=== PATIENT | female | born 1935 | race Caucasian/White ===

== ENCOUNTER → 2020-08-13 | Outpatient (CLI) | payer MEDICARE, OTHER | LOC: MC.RAD 09:59 | DX: Z12.31 Encounter for screening mammogram for malignant neoplasm of breast (principal); Z95.0 Presence of cardiac pacemaker ==

== ENCOUNTER 2020-10-20 10:30 | Outpatient (RCR) | payer MEDICARE, OTHER | END 2020-10-27 | disposition home or self-care (01) | LOC: WSST | DX: R41.841 Cognitive communication deficit (principal); R41.3 Other amnesia; Z91.81 History of falling ==

== ENCOUNTER → 2021-01-12 | Outpatient (CLI) | payer MEDICARE, OTHER | LOC: COL.RAD 12:53 | DX: R90.82 White matter disease, unspecified (principal); E86.9 Volume depletion, unspecified; H91.93 Unspecified hearing loss, bilateral; E53.8 Deficiency of other specified B group vitamins; F32.9 Major depressive disorder, single episode, unspecified ==

== ENCOUNTER 2022-02-22 10:33 | Observation (INO) | payer MEDICARE, OTHER ==
[~2022-02-22] VITALS: Ht 157.5 cm; Wt 53.8 kg
[2022-02-22 10:59] LABS: BASO # 0.1 K/mm3 (0.0-0.2); BASO % 1.3 % (0.0-2.0); EOS % 0.5 % (0.0-4.0); GRAN # 4.9 K/mm3 (1.4-6.5); GRAN % 78.4 % (42.2-75.2); HEMATOCRIT 34.7 % (37.0-47.0); HEMOGLOBIN 11.6 g/dl (12.5-16.0); LYMPH # 0.5 K/mm3 (1.2-3.4); LYMPH % 8.2 % (20.0-51.0); MEAN CELL VOLUME 98 fl (80.0-100.0); MEAN CORPUSCULAR HEMOGLOBIN 33 pg (27-31); MEAN CORPUSCULAR HGB CONC 33 g/dl (33.0-37.0); MONO # 0.7 K/mm3 (0.1-0.6); MONO % 11.1 % (1.7-9.3); PLATELET COUNT 153 K/mm3 (130-400); RED BLOOD COUNT 3.54 M/mm3 (4.10-5.30)
[2022-02-22 11:17] LABS: ALBUMIN 4.1 gm/dL (3.4-4.8); BILIRUBIN,TOTAL 1.5 mg/dL (0.2-1.2); CALCIUM 8.9 mg/dL (8.4-10.2); CREATININE, serum 0.75 mg/dL (0.57-1.11); POTASSIUM 3.9 mmol/L (3.5-4.5); TOTAL PROTEIN 7.1 gm/dL (6.2-8.1)
[2022-02-22 11:22] LABS: TROPONIN-I 0.028 ng/mL (0.00-0.033)
[2022-02-22] MEDS ORDERED: COREG 3.123.125 MG/T PO (12:05)
[2022-02-22] MEDS ORDERED: ORENCIA CL125 MG/1 M SQ (12:05)
[2022-02-22] MEDS ORDERED: METHOTREXA2.5 MG/TAB PO (12:06)
[2022-02-22] MEDS ORDERED: ELIQUIS 2.5 PO (12:06)
[2022-02-22] MEDS ORDERED: FOLIC ACID 11 MG/TA1 PO (12:06)
[2022-02-22] MEDS ORDERED: CALCIUM 600 MG1 EAC2 PO (12:07)
[2022-02-22] MEDS ORDERED: FERRETTS I40 MG/15 M PO (12:07)
[2022-02-22] MEDS ORDERED: OCUVITE1 TA1 PO (12:07)
[2022-02-22] MEDS ORDERED: NAMENDA 10MG TA10 MG PO (12:08)
[2022-02-22] MEDS ORDERED: EXELON9.5 MG/24 TD (12:08)
[2022-02-22] MEDS ORDERED: VITAMIN B12 781 TAB PO (12:08)
[2022-02-22 19:27] VITALS: BP 154/43; PULSE 62; TEMP 97.5
[2022-02-22 20:57] VITALS: BP 143/62; PULSE 70; TEMP 97.8
[2022-02-23 00:05] VITALS: BP 150/74; PULSE 76; TEMP 97.5
--- NOTE | 2022-02-23 00:49 | NUR ---
PATIENT ABLE TO AMBULATE TO BED WITH SBA. PATIENT CALM AND COOPERATIVE. V/S STABLE AND PATIENT IS ON ROOM AIR. PATIENT ORIENTED TO ROOM UPON ADMISSION. NO REQUESTS OR CONCERNS VERBALIZED BY PATIENT AT THIS TIME.
[2022-02-23 04:35] VITALS: BP 139/79; PULSE 83; TEMP 97.6
[2022-02-23 06:20] LABS: BASO % 0.4 % (0.0-2.0); GRAN # 3.5 K/mm3 (1.4-6.5); GRAN % 70.6 % (42.2-75.2); HEMOGLOBIN 11.7 g/dl (12.5-16.0); LYMPH # 0.8 K/mm3 (1.2-3.4); LYMPH % 15.2 % (20.0-51.0); MEAN CELL VOLUME 99 fl (80.0-100.0); MEAN CORPUSCULAR HEMOGLOBIN 33 pg (27-31); MEAN CORPUSCULAR HGB CONC 33 g/dl (33.0-37.0); MEAN PLATELET VOLUME 10.8 fl (7.4-10.4); MONO # 0.7 K/mm3 (0.1-0.6); MONO % 13.2 % (1.7-9.3); PLATELET COUNT 168 K/mm3 (130-400); RED BLOOD COUNT 3.59 M/mm3 (4.10-5.30); REDCELL DISTRIBUTION WIDTH-CV 17.3 % (11.5-14.5)
[2022-02-23 06:29] LABS: HEMATOCRIT 35.5 % (37.0-47.0)
--- NOTE | 2022-02-23 06:31 | NUR ---
patient rested quietly in bed throughout the night. No new issues noted or reported by patient.
[2022-02-23 06:39] LABS: ALBUMIN 3.4 gm/dL (3.4-4.8); BILIRUBIN,TOTAL 0.7 mg/dL (0.2-1.2); CALCIUM 8.6 mg/dL (8.4-10.2); CREATININE, serum 0.79 mg/dL (0.57-1.11); POTASSIUM 3.8 mmol/L (3.5-4.5); TOTAL PROTEIN 6.2 gm/dL (6.2-8.1)
[2022-02-23 07:57] VITALS: BP 161/94; PULSE 91; TEMP 98
--- NOTE | 2022-02-23 08:44 | NUR ---
Patient oriented to person and place. Was able to tell me she is in a hospital in [place], but could not remember what town. Could not remember the date. Patient denies any concerns at this time. Bed alarm is on, PCT asked to place patient in yellow gown and socks, as well as place a monitor in the room for patient's safety. Patient remains on RA. Morning medications administered and breakfast ordered. Patient instructed to use call light if any needs arise.
--- NOTE | 2022-02-23 09:21 | NUR ---
The patient is COVID positive. SW contacted the patient to discuss discharge plan. The patient resides alone at [facility]. She reports independence with ADLs and has a walker. The patient's primary care provider is SANJUANITA Cardoza and she receives her medications from [facility]. The patient believes she has a DPOA-HC and designated her daughter, Kinga. She states that she is and has three children: Kinga (ph#[phone]), Huber, and Marshal. SW contacted the patient's daughter, Kinga, to review the above and discharge plan. Kinga confirmed the above. She states that she feels comfortable with the patient returning back to her [place] apartment upon discharge, as long as she is able to get up and go to the bathroom. She states that if the patient is needing help, she plans on staying with the patient. Kinga states that she is the patient's DPOA-HC and she can bring a copy of the document to the hospital. PT/OT have been ordered. [facility] to continue to follow. *Discharge plan: [facility]. Awaiting PT/OT recs*
[2022-02-23 11:07] VITALS: BP 149/75; PULSE 85; TEMP 97.8
[2022-02-23] MEDS ORDERED: ZESTRIL 10MG10 MG PO (11:33)
[2022-02-23] MEDS ORDERED: LASIX 20MG TABL20 MG PO (11:39)
--- NOTE | 2022-02-23 12:57 | NUR ---
The hospitalist notified [facility] that he is ready to discharge the patient today. PT worked with the patient and notified [facility] that the patient is appropriate to return back to [place], but would recommend home health. [facility] contacted and updated the patient's daughter, Kinga. Kinga is in agreement to the plan and would like to go ahead and use [facility]. [facility] contacted and faxed a referral to Cristo at [facility]. Cristo states that they are able to accept the patient for services. The patient is to discharge today, 02/23, back to [facility] with assistance from her daughter and home health services for long term/PT/OT from [facility]. [facility] notified and faxed orders to Cristo at [facility]. No additional needs at this time.
--- NOTE | 2022-02-23 16:25 | NUR ---
Patient discharged home w/ daughter. All discharge education and instructions gone over w/ daughter, as patient has dementia. All questions answered. IV and telemetry removed.
== END 2022-02-23 16:15 | disposition home health service (06) ==
LOC: COL.ER 10:33 → MEDICAL 13:18 → EDBEDREQ 17:51 → MEDICAL 02-23 16:15
PROVIDERS: Emergency Medicine; Physician Assistant; ADMIT Student in an Organized Health Care Education/Training Program
DX: I11.0 Hypertensive heart disease with heart failure (principal); I50.21 Acute systolic (congestive) heart failure; U07.1 COVID-19; I48.19 Other persistent atrial fibrillation; F03.90 Unspecified dementia, unspecified severity, without behavioral disturbance, psychotic disturbance, mood disturbance, and anxiety; R94.5 Abnormal results of liver function studies; M06.9 Rheumatoid arthritis, unspecified; R53.1 Weakness; D64.9 Anemia, unspecified; I08.1 Rheumatic disorders of both mitral and tricuspid valves; T50.2X6A Underdosing of carbonic-anhydrase inhibitors, benzothiadiazides and other diuretics, initial encounter; Z91.128 Patient's intentional underdosing of medication regimen for other reason; Y92.099 Unspecified place in other non-institutional residence as the place of occurrence of the external cause; Z79.01 Long term (current) use of anticoagulants; Z79.899 Other long term (current) drug therapy; Z95.0 Presence of cardiac pacemaker
CPT/HCPCS: 99239; G0378; J0696; J1100; J1940

== ENCOUNTER → 2022-07-26 | Outpatient (CLI) | payer MEDICARE, OTHER ==
[~2022-07-26] MED LIST: ASPIRIN E.C. 8181 MG PO; CALCIUM 600 MG1 EAC2 PO; COREG 3.123.125 MG/T PO; ELIQUIS 2.5 PO; EXELON9.5 MG/24 TD; FERRETTS I40 MG/15 M PO; FOLIC ACID 11 MG/TA1 PO; IMODIUM 2MG CAPS2 MG PO; LASIX 20MG TABL20 MG PO; LASIX 40MG TABL40 MG PO; LIPITOR20 MG PO; MELATONIN3 M1 PO; METHOTREXA2.5 MG/TAB PO; NAMENDA 10MG TA10 MG PO; OCUVITE1 TA1 PO; ORENCIA CL125 MG/1 M SQ; RAZADYNE12 MG PO; REFRESH TEARS 330 ML OP; TYLENOL 325MG325 MG PO; VITAMIN B12 781 TAB PO; ZESTRIL 10MG10 MG PO
== END ==
LOC: ZCOL.LAB 12:09
DX: R06.2 Wheezing (principal)

== ENCOUNTER → 2022-07-27 | Outpatient (CLI) | payer MEDICARE, OTHER | LOC: COL.RAD 07:22 | DX: S70.01XA Contusion of right hip, initial encounter (principal) ==